=== PATIENT | male | born 1990 | race Caucasian/White ===

== ENCOUNTER 2016-06-25 19:48 | Emergency (ER) | payer SELFPAY ==
[2016-06-25 19:54] VITALS: RESP 16; TEMP 97.5
[2016-06-25] MEDS ORDERED: AMOXICILLIN 500 MG CAPSULE PO SCH (20:00)
[2016-06-25] MEDS ORDERED: oxyCODONE-ACETAMINOPHEN 5-325 TAB PO SCH (20:00)
--- NOTE | 2016-06-25 20:46 | PDOC ---
Sore Throat/Dental Pain HPI - General Chief Complaint: Nasal/Mouth Problem /Injury Stated Complaint: LEFT SIDE JAW PAIN Date Seen by Provider: 06/25/16 Time Seen by Provider: 19:50 Source: POSITIVE: Patient Exam Limitations: POSITIVE: No limitations Nurse's Notes Reviewed & Considered: Yes - History of Present Illness Initial Comments: The patient is a 26-year-old male who presents to the emergency department with left lower jaw pain and swelling. He reports he has had increased pain behind his left lower molar for the past 3 days. This has worsened today and he has some associated swelling of the gum. He states it is difficult for him to open his mouth all the way. He is able to swallow although he does have some increased pain with swallowing as well. He denies fevers or chills. He does still have his wisdom teeth. - Patient Home Medications Home Medications: Home Medications Amoxicillin 500 mg PO Q8H #21 cap 06/25/16 oxyCODONE/APAP 5/325 Tab [Percocet 5/325 Tab] 1 - 2 tab PO Q6H PRN #10 tab 10/06 - Patient Allergies Allergies/Adverse Reactions: Allergies Allergy/AdvReac Type Severity Reaction Status Date / Time No Known Allergies Allergy Unverified 06/25/16 19:50 Past Medical History - heen HEENT History: Denies History Cardiovascular History: Denies History Respiratory History: Denies History Gastrointestinal History: Denies History Genitourinary History: Denies History Endocrine History: Denies History Musculoskeletal History: Denies History Neurological History: Denies History Blood Disorders: Denies History Psychiatric History: Denies History Male Reproductive History: Denies History Cancer History: Denies History In Past Year Been Physically Harmed or Verbally Threatened: No History of MDRO: No Tobacco Use: Current Every Day Smoker Alcohol Use: None Substance Use Type: None Previous Surgical History: No Significant Family History: No pertinent family hx Past Medical History Reviewed: Reviewed - No Changes ROS - Limitations ROS Limitations: No Limitations Constitution: DENIES: Chills, Fever Cardiovascular: REPORTS: Denies Cardiac Symptoms Respiratory: REPORTS: Denies Resp Symptoms Neurological: REPORTS: Denies Neuro Symptoms Gastrointestinal: REPORTS: Denies GI Symptoms Sore Throat/Dental Pain Exam - General Appearance General Appearance: REPORTS: Alert, Cooperative, No Acute Distress - HEENT Head / Face: POSITIVE: No Facial Swelling Eyes: POSITIVE: Inspection Normal Ears: POSITIVE: Ears Normal Inspection Nose: POSITIVE: Inspection Normal Oropharynx: POSITIVE: Other (The patient is able to open his mouth although this is somewhat limited secondary to pain, he does have some swelling to the gum line near the very last molar on the left lower side. No obvious drainage, no obvious facial swelling, no swelling down in his neck) Neck: POSITIVE: Supple. NEGATIVE: Lymphadenopathy - Respiratory Respiratory: REPORTS: No Respiratory Distress, Breath Sounds Normal - Cardiovascular Cardiovascular: REPORTS: Regular Rate and Rhythm, Heart Sounds Normal Sore Throat/Dental Progress - Patient's Progress MDM / ED Course: The patient was started on amoxicillin 500 mg 3 times a day for 7 days for treatment of dental abscess. In addition he was advised to take ibuprofen 600 mg every 6 hours as needed for pain. He was prescribed Percocet as needed for breakthrough pain which he can take one or 2 every 6 hours. He is advised return to the emergency room if he develops increased pain or facial swelling, increased difficulty swallowing, dehydration, any worsening or change in symptoms. He was advised to follow-up with the dentist as soon as possible. - Consult Counseled: POSITIVE: Patient, RE: DX, RE: Need for F/U Patient Care Time - Estimated PCT Patient Care Time (In Minutes): 10 Vital Signs - Recent Vital Signs Vital Signs: Vital Signs (Last 8 hours) Temp Pulse Resp BP Pulse Ox 06/25/16 19:48 97.5 F 112 H 16 128/98 96 - VS Reviewed Vital Signs Reviewed: Yes Discharge Clinical Impression: Dental abscess Condition: Good Prescriptions / Orders: Amoxicillin 500 mg PO Q8H #21 cap oxyCODONE/APAP 5/325 Tab [Percocet 5/325 Tab] 1 - 2 tab PO Q6H PRN #10 tab PRN Reason: Pain Patient Instructions Given at Discharge: Dental Abscess (ED) Additional Instructions: Amoxicillin 500 mg 3 times a day for 7 days. Ibuprofen 600 mg every 6 hours as needed for pain. Percocet 5/325 one to 2 every 6 hours as needed for pain. Return to the emergency room if increased pain, increased difficulty swallowing , dehydration, increased swelling, any worsening or change in symptoms. Recommend dental follow-up as soon as possible. If you are unable to get a dental appointment locally you can follow-up with the [facility] dental clinic in [place] Follow Up With: NONE,NONE [Primary Care Provider] -
== END 2016-06-25 20:10 | disposition home or self-care (01) ==
LOC: ER 19:48
DX: K04.7 Periapical abscess without sinus (principal); F17.210 Nicotine dependence, cigarettes, uncomplicated
CPT/HCPCS: 99282